=== PATIENT | male | born 1960 | race Caucasian/White ===

== ENCOUNTER 2020-04-12 10:18 | Outpatient (CLI) | payer OTHER | END 2020-04-12 23:59 | disposition home or self-care (01) | LOC: LAB 10:18 | PROVIDERS: ATTEND Student in an Organized Health Care Education/Training Program | DX: Z01.812 Encounter for preprocedural laboratory examination (principal); Z11.59 Encounter for screening for other viral diseases | CPT/HCPCS: 87426; C9803 ==

== ENCOUNTER 2020-04-17 04:58 | Day surgery (SDC) | payer OTHER ==
[~2020-04-17] VITALS: Ht 172.7 cm; Wt 68.0 kg
[2020-04-17] MEDS ORDERED: MIDAZOLAM HCL 2 MG/2ML VIAL ONE (06:11)
[2020-04-17] MEDS ORDERED: FENTANYL PF 250MCG/5ML AMPUL ONE (06:12)
[2020-04-17] MEDS ORDERED: FAMOTIDINE/PF INJ 20 MG/2 ML VIAL IV ONE (06:13)
[2020-04-17] MEDS ORDERED: HYDROMORPHONE INJ 2 MG/ML DISP.SYRIN ONE ×2 (06:13→09:23)
[2020-04-17] MEDS ORDERED: ROCURONIUM BROMIDE 50 MG/5 ML ONE (06:14)
[2020-04-17] MEDS ORDERED: ANESTHESIA TRAY IN PYXIS 1 EA TRAY MC ONE (06:25)
--- NOTE | 2020-04-17 06:30 | NUR ---
MS RN NOTE: RECEIVED PATIENT FROM HOME FOR DAY SURGERY. CONSENT PAPERWORK SIGNED AND FILED IN CHART. IV STARTED TO LFA #22 WITH GOOD BLOOD RETURN. PATIENT NPO SINCE 1999 LAST NIGHT. PATIENT BELONGINGS AT BEDSIDE. PATIENT PICKED UP FOR SURGERY AND OFF FLOOR IN STABLE CONDITION.
[2020-04-17] MEDS ORDERED: BUPIVACAINE 0.25% 75 MG/30 ML VIAL ONE (06:34)
[2020-04-17] MEDS ORDERED: MORPHINE SULFATE/PF 10 MG/10ML (1MG/ML) AMPUL ONE (07:12)
[2020-04-17] MEDS ORDERED: BUPIVACAINE 0.5 % PF 150 MG/30 ML VIAL ONE (07:12)
[2020-04-17] MEDS ORDERED: EPINEPHRINE (1:1000) 1 MG/ML AMPUL ONE (07:12)
--- NOTE | 2020-04-17 07:48 | NUR ---
MS CALVILLO NOTES RECEIVED PATIENT OFF UNIT, IN OR FOR RIGHT SHOULDER ARTHROSCOPY, SUB ACROMIAL DECOMPRESSION, OPEN BICEP TENODESIS WITH DR. GLASS. Addendum: 04/17/20 at 0908 by MARCELINA BECERRA RN SURGEON: DR. BABCOCK NOT DR. GLASS. Addendum: 04/17/20 at 1010 by MARCELINA BECERRA RN CLARIFIED WITH SANJUANA, OR NURSE. SURGEON IS DR. TITUS
[2020-04-17] MEDS ORDERED: MEPERIDINE HCL/PF 100 MG/2 ML AMPUL ONE (09:32)
--- NOTE | 2020-04-17 10:08 | NUR ---
MS RN NOTES RECEIVED REPORT FROM RAJINDER WEI OR NURSE. PATIENT DONE WITH SURGERY BY DR. GLASS (SURGEON). AWAITING FOR PATIENT TO COME TO UNIT.
[2020-04-17] MEDS ORDERED: HYDROCODONE/APAP 10/325MG TABLET ONE (10:11)
--- NOTE | 2020-04-17 10:30 | NUR ---
MS RN NOTES RECEIVED PATIENT IN BED ALERT AND ORIENTED X4. S/P RIGHT SHOULDER ATHROSCOPY SUBACHROMIAL DECOMPRESSION OPEN BICEPS WITH DR. GLASS (DAY SURGERY) TOLL WELL WITHOUT S/S OF COMPLICATIONS. PATIENT DENIES ANY C/O PAIN NOR DISCOMFORT AT THIS TIME. PATIENT ATE CRACKER, DRANK JUICE AND WATER MARCIO WELL. POST SURGERY INSTRUCTIONS DISCUSSED BY MELANY. PATIENT RESTING COMFORTABLY IN BED. BED IN LOWEST POSITION LOCKED. BED ALARM ON. CALL LIGHT WITHIN REACH.
--- NOTE | 2020-04-17 12:10 | NUR ---
MS RN NOTES ALERT AND ORIENTED X4. AMBULATORY WITH STEADY GAIT. S/P RIGHT SHOULDER ATHROSCOPY SUBACHROMIAL DECOMPRESSION OPEN BICEPS WITH DR. GLASS WITHOUT S/S OF COMPLICATIONS. PATIENT DENIES ANY C/O PAIN NOR DISCOMFORT AT THIS TIME. PATIENT STATES HE FILLED HIS NORCO AT [facility] AND ALREADY HAS F/U APPOINTMENT WITH DR. GLASS AND HIS INSTRUCTIONS AT HOME. PATIENT PICKED UP BY . IV ACCESS REMOVED WITH CATHETER TIP INTACT. PATIENT LEFT IN STABLE CONDITION.
== END 2020-04-17 18:00 | disposition home or self-care (01) ==
LOC: DS 04:58 → MED 05:04 → UNDOADMIN 05:04 → MED 05:23 → UNDODISIN 12:10 → DS 18:00
PROVIDERS: ATTEND Student in an Organized Health Care Education/Training Program
DX: M75.41 Impingement syndrome of right shoulder (principal); K21.9 Gastro-esophageal reflux disease without esophagitis; M65.811 Other synovitis and tenosynovitis, right shoulder; M94.8X1 Other specified disorders of cartilage, shoulder
CPT/HCPCS: 23430; 29823; 36415; 86850; 88304; 88311; A4217; A4565; A6209; A6253; A6402; J0171; J0690; J1170 ×2; J2250; J2704; J2765; J3010; J3490 ×4; G0378; J2274

== ENCOUNTER 2020-04-19 18:34 | Emergency (ER) | payer OTHER ==
[~2020-04-19] VITALS: Ht 172.7 cm; Wt 68.0 kg
[2020-04-19 18:54] VITALS: BP 155/85
--- NOTE | 2020-04-19 19:18 | NUR ---
BIBS W/ FROM HOME TO ER BED 4. AAOX4. NOT IN RESP DISTRESS. AMBUALTORY. CAME INFOR A AN OPEN BLISTER W/ SEROUS DRAINAGE ON R BACK WHERE THAN ADHESIVE TAPE WAS PLACED FROM A SURGERY. PT HAD A SHOULDER SURGERY ON WEDNESDAY. PT ALSO STATES THAT HE HAS BEEN HAVING PAIN UPON URINATION FOR THE PAST 3 DAYS. JAMAL ARELLANO WAS AT THE BEDSIDE FOR EVAL. DRESSING REMOVED AND URINE COLLECTED
--- NOTE | 2020-04-19 19:31 | NUR ---
DRESSING CHANGED ON SURGICAL WOUND INCISION. CLEANSE WITH NS. PAT DRY. MELODY AND COVERED WITH BAND AIDE
[2020-04-19 19:40] LABS: APPEARANCE,URINE Clear (CLEAR); BILIRUBIN,URINE Negative (NEGATIVE); BLOOD, URINE Trace-lysed Ery/uL (NEGATIVE); COLOR,URINE Yellow (YELLOW); KETONES,URINE Negative (NEGATIVE); LEUKOCYTE ESTERASE ,URINE Negative (NEGATIVE); NITRITE, URINE Negative (NEGATIVE); PROTEIN,URINE Negative (NEGATIVE); UGLUCOSE Negative (NEGATIVE); UROBILINOGEN,URINE 0.2 EU/dL (0.2)
[2020-04-19 19:50] LABS: WBC,URINE NONE SEEN /HPF (0-3)
[2020-04-19 19:51] LABS: BACTERIA,URINE Rare /HPF (None Seen); SQUAMOUS EPITHELIAL CELL,UR Few /HPF (None Seen)
--- NOTE | 2020-04-19 20:08 | NUR ---
Patient discharged to home in stable condition. Written and verbal after care instructions given. Patient verbalizes understanding of instruction.
== END 2020-04-19 20:10 | disposition home or self-care (01) ==
LOC: ER 18:36
DX: S20.421A Blister (nonthermal) of right back wall of thorax, initial encounter (principal); K59.00 Constipation, unspecified; Z96.611 Presence of right artificial shoulder joint; Z98.890 Other specified postprocedural states; X58.XXXA Exposure to other specified factors, initial encounter; Y93.89 Activity, other specified; Y92.89 Other specified places as the place of occurrence of the external cause; Y99.8 Other external cause status
CPT/HCPCS: 81000-TC; 87086-TC